=== PATIENT | female | born 1995 | race Caucasian/White ===

== ENCOUNTER 2018-04-30 17:02 | Emergency (ER) | payer MEDICAID ==
[~2018-04-30] VITALS: Ht 162.6 cm; Wt 73.0 kg
[2018-04-30 19:18] VITALS: BP 112/65
== END 2018-04-30 19:18 | disposition home or self-care (01) ==
LOC: ER 17:02
DX: Z48.02 Encounter for removal of sutures (principal)
CPT/HCPCS: 99281